=== PATIENT | male | born 2005 | race Asian ===

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

== ENCOUNTER → 2025-07-16 | Outpatient (CLI) | payer BC ==
[2025-07-16 17:10] LABS: CREATININE 0.6 mg/dL (0.6-1.3)
[2025-07-16 17:11] LABS: TRIGLYCERIDE 104 mg/dL (0-150); UREA NITROGEN BLOOD 8 mg/dL (9-23)
[2025-07-16 17:16] LABS: ASPARTATE AMINOTRANSFERASE 32 IU/L (<34); BILIRUBIN TOTAL 0.3 mg/dL (0.1-1.0); LDL CHOLESTEROL 114 mg/dL (5-100); PROTEIN TOTAL 7.7 g/dL (6.0-8.3); T4 FREE 1.24 ng/dL (0.89-1.76)
== END | disposition home or self-care (01) ==
LOC: LAB 15:08
PROVIDERS: ATTEND Internal Medicine
DX: J45.909 Unspecified asthma, uncomplicated (principal); Z13.1 Encounter for screening for diabetes mellitus; Z13.220 Encounter for screening for lipoid disorders; Z13.0 Encounter for screening for diseases of the blood and blood-forming organs and certain disorders involving the immune mechanism; Z13.29 Encounter for screening for other suspected endocrine disorder; Z00.00 Encounter for general adult medical examination without abnormal findings
CPT/HCPCS: 80053; 80061; 84439; 84443